=== PATIENT | male | born 1960 | race African-American/Black ===

== ENCOUNTER 2024-02-26 13:46 | Emergency (ER) | payer OTHER ==
[2024-02-26 14:08] VITALS: BP 118/80; RESP 18; BMI 40.6
[2024-02-26] MEDS ORDERED: CLINDAMYCIN 600MG PREMIX IVPB 600 MG/50 ML BAG IVPB ONE (15:29)
[2024-02-26 15:33] LABS: BASO % 0.5 % (0-2.0); EOS % 2.9 % (0-4.5); HEMATOCRIT 38.9 % (35.4-49); HEMOGLOBIN 12.6 GM/dL (11.7-16.9); LYMPH % 18.2 % (8-40); MCH 26.4 pg (25.7-33.7); MCHC 32.3 g/dl (32.0-35.9); MEAN CELL VOLUME 81.7 fl (80-96); MEAN PLT VOLUME 8.1 fl (7.5-11.1); MONO % 6.1 % (3.8-10.2); NEUT % 72.3 % (42.8-82.8); PLATELET COUNT 258 10^3/uL (134-434); RBC 4.76 M/mm3 (4.00-5.60); RDW 15.2 % (11.9-15.9); WHITE BLOOD COUNT 6.8 K/mm3 (4.0-10.0)
[2024-02-26] MEDS: CLINDAMYCIN 600MG PREMIX IVPB 600 MG/50 ML BAG IVPB ONE (15:34)
[2024-02-26] MEDS ORDERED: LIDOCAINE VISCOUS 2% ORAL/TOP 15 ML UNIT-DOSE CUP ONE (15:37)
[2024-02-26] MEDS: LIDOCAINE VISCOUS 2% ORAL/TOP 15 ML UNIT-DOSE CUP MM ONE (15:38)
[2024-02-26 15:46] VITALS: PULSE 77; TEMP 98.4
[2024-02-26 16:01] LABS: POTASSIUM 4.6 mmol/L (3.5-5.1)
[2024-02-26 16:03] LABS: ALBUMIN 3.4 g/dl (3.4-5.0); CALCIUM 9.2 mg/dL (8.5-10.1)
[2024-02-26 16:06] LABS: CREATININE 0.5 mg/dL (0.55-1.3)
[2024-02-26 16:08] LABS: BILIRUBIN,TOTAL 0.4 mg/dL (0.2-1)
== END 2024-02-26 16:02 | disposition short-term general hospital (02) ==
LOC: JER 13:46
DX: R51.9 Headache, unspecified (principal); K04.7 Periapical abscess without sinus; Z20.822 Contact with and (suspected) exposure to COVID-19
CPT/HCPCS: 0241U-QW; 36415; 80053; 85025; 93005; 93010; 96365; 99285-25